=== PATIENT | female | born 1990 | race Caucasian/White ===

== ENCOUNTER 2021-07-29 06:53 | Emergency (ER) | payer OTHER ==
[~2021-07-29] VITALS: Ht 157.5 cm; Wt 96.2 kg
[2021-07-29 06:58] VITALS: BP 112/55
[2021-07-29 07:19] VITALS: BP 117/62
== END 2021-07-29 07:19 ==
LOC: MED 06:53
DX: S39.012A Strain of muscle, fascia and tendon of lower back, initial encounter (principal); F17.200 Nicotine dependence, unspecified, uncomplicated; F10.10 Alcohol abuse, uncomplicated; R51.9 Headache, unspecified; Z98.890 Other specified postprocedural states; Z02.89 Encounter for other administrative examinations; V89.2XXA Person injured in unspecified motor-vehicle accident, traffic, initial encounter; Y93.89 Activity, other specified; Y92.89 Other specified places as the place of occurrence of the external cause; Y99.8 Other external cause status
CPT/HCPCS: 99283